=== PATIENT | male | born 1990 | race Caucasian/White ===

== ENCOUNTER 2021-06-29 10:52 | Emergency (ER) | payer BC ==
[~2021-06-29] VITALS: Ht 165.1 cm; Wt 91.0 kg
[2021-06-29 11:00] VITALS: BP 110/79
[2021-06-29] MEDS ORDERED: TOPUD PO (11:03)
== END 2021-06-29 11:37 | disposition home or self-care (01) ==
LOC: ER 10:52
DX: U07.1 COVID-19 (principal)
CPT/HCPCS: 99283; C9803; U0003; U0005